=== PATIENT | male | born 1990 | race Caucasian/White ===

== ENCOUNTER 2017-05-15 16:06 | Inpatient (IN) | payer OTHER ==
[~2017-05-15] VITALS: Ht 162.6 cm; Wt 76.4 kg
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
--- NOTE | ~2017-05-15 | EKG ---
[address] [place] [address] ELECTROCARDIOGRAM REPORT Name: SERG OBRIEN Room #: 313-P [facility] IN M.R.#: [id number] Admission: 05/15/17 Attend Phys: Zachary Sanford MD Discharge: 05/17/17 Date of : 89 Report #: [id number] THIS REPORT FOR: //name// [facility] ED Test Date: 2017-05-15 Test Time: 16:29:15 Pat Name: SERG OBRIEN Department: Room: [facility] Gender: M Director Of Occupational Therapy: REMIGIO : 1990 Requested By: Sarahi Cueto Order Number: [id number] MD: Higinio Martinez Measurements Intervals [place] Rate: 116 P: 66 NE: 129 QRS: 86 QRSD: 92 T: 27 QT: 301 QTc: 419 Interpretive Statements Sinus tachycardia Otherwise no significant abnormality No previous ECG available for comparison Electronically Signed On 05-18-2017 13:27:45 CDT by Higinio Martinez [email or web address] <ELECTRONICALLY SIGNED> By: Higinio Martinez MD, [facility] 05/18/17 1327 1629 1629 Higinio Martinez MD, FACC /EPI
[2017-05-15 16:07] VITALS: BP 127/69
[2017-05-15 16:52] LABS: HEMATOCRIT 43.4 % (42.0-52.0); HEMOGLOBIN 14.8 gm/dL (14.0-18.0); MCH 31.1 pg (26.0-34.0); MCHC 34.1 g/dL (28.0-37.0); MCV 91.2 fL (80.0-100.0); PLATELET COUNT 361 thou/uL (150-400); RBC 4.76 mil/uL (4.50-6.00); RDW 14.4 % (10.5-14.5); WBC 14.4 thou/uL (4.0-11.0)
[2017-05-15 16:53] LABS: MANUAL DIFF YES
[2017-05-15 17:00] LABS: ANION GAP 10 mmol/L (7-16); BUN 18 mg/dL (7-18); CALCIUM 8.6 mg/dL (8.5-10.1); CHLORIDE 104 mmol/L (98-107); CO2 25 mmol/L (21-32); CREATININE 1.1 mg/dL (0.7-1.3); GLUCOSE 209 mg/dL (74-106); SODIUM 139 mmol/L (136-145)
[2017-05-15 17:14] LABS: ALBUMIN 3.8 g/dL (3.4-5.0); ALKALINE PHOSPHATASE 58 U/L (46-116); SGOT 34 U/L (15-37); SGPT 36 U/L (30-65); TOTAL PROTEIN 7.4 g/dL (6.4-8.2); TROPONIN-I < 0.04 ng/mL (<0.04-0.07)
[2017-05-15 17:17] LABS: ABSOLUTE NEUTROPHILS 12.1 thou/uL (1.4-8.2); TOTAL CELL COUNT 100
[2017-05-15 17:36] LABS: SALICYLATE < 2.8 mg/dL (2.8-20.0)
[2017-05-15 18:36] LABS: URINE BILIRUBIN NEGATIVE (Negative); URINE BLOOD NEGATIVE (Negative); URINE COLOR YELLOW; URINE GLUCOSE-RANDOM* TRACE (Negative); URINE KETONES NEGATIVE (Negative); URINE NITRITE NEGATIVE (Negative); URINE PROTEIN (DIPSTICK) 1+ (Negative); URINE SPECIFIC GRAVITY >= 1.030 (1.003-1.035); URINE UROBILINOGEN 0.2 E.U./dl (0.2-1.0)
[2017-05-15 18:44] LABS: BACTERIA 1-9 Few /HPF (None Seen); CASTS None Seen /LPF (None Seen); SQUAMOUS None Seen /LPF (0-3); URINE RBC None Seen /HPF (0-2); URINE WBC 0-5 Rare /HPF (0-5)
[2017-05-15 18:45] LABS: CRYSTALS None Seen /LPF (None Seen)
[2017-05-15 18:46] LABS: AMP/METHAMP Negative (Negative); BARBITURATES Negative (Negative); BENZODIAZEPINES POSITIVE (Negative); COCAINE Negative (Negative); METHADONE Negative (Negative); OPIATES POSITIVE (Negative); PCP Negative (Negative); THC POSITIVE (Negative)
[2017-05-15 20:03] VITALS: BP 123/73
[2017-05-15 20:40] VITALS: BP 130/64
[2017-05-15 21:00] VITALS: BP 121/68
[2017-05-15] MEDS ORDERED: CLEOCIN HCL150 MG PO (21:14)
[2017-05-15] MEDS ORDERED: TYLENOL325 MG PO (21:15)
[2017-05-15] MEDS ORDERED: IBUPROFEN 200200 M1 PO (21:16)
[2017-05-15 23:55] VITALS: BP 127/65
[2017-05-16 05:48] VITALS: BP 133/70
[2017-05-16 06:01] LABS: HEMATOCRIT 39.3 % (42.0-52.0); HEMOGLOBIN 13.5 gm/dL (14.0-18.0); MCH 31.5 pg (26.0-34.0); MCHC 34.4 g/dL (28.0-37.0); MCV 91.5 fL (80.0-100.0); RBC 4.3 mil/uL (4.50-6.00); RDW 14.1 % (10.5-14.5); WBC 8.3 thou/uL (4.0-11.0)
[2017-05-16 06:11] LABS: CALCIUM 8.1 mg/dL (8.5-10.1)
[2017-05-16 07:48] VITALS: BP 112/72
[2017-05-16 15:58] VITALS: BP 115/73
[2017-05-16 19:58] VITALS: BP 115/66
[2017-05-16 22:06] LABS: GLYCOHEMOGLOBIN (HGB A1C) 4.9 % (4.8-5.6)
[2017-05-17 02:58] LABS: HEMATOCRIT 43.1 % (42.0-52.0); HEMOGLOBIN 14.8 gm/dL (14.0-18.0); MCH 31.3 pg (26.0-34.0); MCHC 34.3 g/dL (28.0-37.0); MCV 91.3 fL (80.0-100.0); RBC 4.72 mil/uL (4.50-6.00); RDW 14.7 % (10.5-14.5); WBC 8.5 thou/uL (4.0-11.0)
[2017-05-17 03:07] LABS: CALCIUM 8.8 mg/dL (8.5-10.1); CREATININE 0.9 mg/dL (0.7-1.3); POTASSIUM 3.8 mmol/L (3.5-5.1)
[2017-05-17 03:45] VITALS: BP 105/53
[2017-05-17 08:00] VITALS: BP 108/63
[2017-05-17 10:25] VITALS: BP 108/63
[2017-05-17] MEDS ORDERED: CEFUROXIME500 MG PO (11:44)
[2017-05-17] MEDS ORDERED: MUPIROCIN22 GM TOP (11:44)
== END 2017-05-17 12:17 | disposition home or self-care (01) | DRG 935 ==
LOC: ER 16:06 → EROBS 19:53 → 3N 20:40
PROVIDERS: Hospitalist; Nurse Practitioner Family
DX: T21.22XA Burn of second degree of abdominal wall, initial encounter (principal); L03.311 Cellulitis of abdominal wall; R65.10 Systemic inflammatory response syndrome (SIRS) of non-infectious origin without acute organ dysfunction; F11.20 Opioid dependence, uncomplicated; R73.9 Hyperglycemia, unspecified; F12.20 Cannabis dependence, uncomplicated; R09.02 Hypoxemia; T40.2X5A Adverse effect of other opioids, initial encounter; Z88.6 Allergy status to analgesic agent; Z79.899 Other long term (current) drug therapy; Z71.51 Drug abuse counseling and surveillance of drug abuser; Y92.89 Other specified places as the place of occurrence of the external cause
CPT/HCPCS: 10096